=== PATIENT | female | born 1995 ===

== ENCOUNTER → 2017-07-09 | Outpatient (CLI) | payer BC | LOC: LAB SHORT 10:24 → PLD 10:24 | DX: D22.5 Melanocytic nevi of trunk (principal); D22.72 Melanocytic nevi of left lower limb, including hip | CPT/HCPCS: 88305 ==

== ENCOUNTER → 2017-08-06 | Outpatient (CLI) | payer BC | LOC: LAB SHORT 14:31 → PLD 14:31 | DX: D22.72 Melanocytic nevi of left lower limb, including hip (principal) | CPT/HCPCS: 88305 ==